=== PATIENT | female | born 1985 | race Two or more races ===

== ENCOUNTER → 2025-02-10 | Outpatient (CLI) | payer MEDICAID ==
[2025-02-10 11:18] LABS: Hematocrit 43.6 % (36.0-46.0); Hemoglobin 14.9 g/dL (12.2-16.2); Mean Corpuscular Hemoglobin 29.7 pg (28.0-32.0); Mean Corpuscular Volume 86.9 fL (80.0-100.0); Nucleated Red Blood Cells % 0.1 %
[2025-02-10 11:34] LABS: Urine Protein, UAD Negative (Negative)
[2025-02-10 12:44] LABS: Alanine Aminotransferase 30 U/L (7-40); Albumin 4.6 g/dL (3.2-4.8); Alkaline Phosphatase 106 U/L (46-116); Anion Gap 10 (5-15); BUN/Creatinine Ratio 10.0 (10.0-20.0); Calcium 9.2 mg/dL (8.7-10.4); Carbon Dioxide 26 mmol/L (20-31); Chloride 103 mmol/L (98-107); Glucose 94 mg/dL (74-106); Potassium 3.9 mmol/L (3.5-5.1); Sodium 139 mmol/L (136-145); Total Protein 7.8 g/dL (5.7-8.2); Triglycerides 135 mg/dL (< 150)
[2025-02-10 12:45] LABS: Bilirubin, Total 0.8 mg/dL (0.2-1.0); HDL Cholesterol 59 mg/dL (40-59)
[2025-02-10 12:47] LABS: Blood Urea Nitrogen 7 mg/dL (9-23); Cholesterol 225 mg/dL (< 200)
== END | disposition home or self-care (01) ==
LOC: LAB 10:42
PROVIDERS: ATTEND Internal Medicine
DX: G47.33 Obstructive sleep apnea (adult) (pediatric) (principal); R53.83 Other fatigue; Z00.00 Encounter for general adult medical examination without abnormal findings
CPT/HCPCS: 36415; 80053; 80061; 81001; 83036; 84443; 85025; 86038